=== PATIENT | female | born 1995 | race Caucasian/White ===

== ENCOUNTER → 2019-07-08 | Outpatient (CLI) | payer BC ==
--- NOTE | 2019-07-08 14:01 | Diagnostic Imaging Report ---
INDICATION: Measurements of cervical length and placenta. TECHNIQUE: Multiple real-time grayscale images were obtained over the gravid uterus. COMPARISON: None. FINDINGS: There are no prior studies available for comparison. This exam is less than optimal due to the patient's body habitus. There is a single fetus in transverse presentation. heart motion is noted and a rate of 135 bpm is recorded. There are no abnormalities identified; however, the intracranial anatomy and the four-chamber heart view are not well visualized. A short-term (4-6 weeks) follow-up exam would be recommended for further study. The growth parameters are fairly uniform. The placenta is anterior and there is no previa. The amniotic fluid volume is within normal limits. The cervix is identified and measures 4.9 cm in length. The ovaries are not well visualized. Biometrical measurements are as follows: Biparietal 4.77 cm, age 20 weeks 3 days. Head circumference 18.15 cm, age 20 weeks 4 days. Abdominal circumference 15.21 cm, age 20 weeks 3 days. Femur length 3.69 cm, age 21 weeks 6 days. Sonographic estimate age: 20 weeks 6 days. Sonographic estimated date of delivery: 11/19/2019. Estimated Weight: 389 gm (+/- 57 gm). LMP percentile: 42%. heart rate: 135 beats per minute. number: 1 of 1. IMPRESSION: 1. There is a single live fetus of approximately 20 weeks 6 days gestation +/- 1.5 weeks. The EDC is November 19, 2019. 2. There are no abnormalities identified; however, the intracranial anatomy and the four-chamber heart view are not well visualized. Recommendations as above. 3. The growth parameters are fairly uniform. Dictated by: Dictated on workstation # [id number]
== END ==
LOC: RAD 09:59
PROVIDERS: ATTEND Nurse Practitioner Women's Health
DX: Z34.92 Encounter for supervision of normal pregnancy, unspecified, second trimester (principal); Z3A.20 20 weeks gestation of pregnancy
CPT/HCPCS: 76805

== ENCOUNTER → 2019-08-12 | Outpatient (CLI) | payer BC ==
--- NOTE | 2019-08-12 15:48 | Diagnostic Imaging Report ---
INDICATION: Follow-up head anatomy and four-chamber heart views. TECHNIQUE: Multiple real-time grayscale images were obtained over the gravid uterus. COMPARISON: 07/08/2019. FINDINGS: There is a single live fetus in a breech presentation. heart rate was recorded at 132 bpm. Placenta is anterior. Amniotic fluid index is 15.8 cm. Maternal body habitus does compromise the exam. There continues to be suboptimal visualization of the posterior fossa including the cerebellum and cisterna magna. Four-chamber heart views remain limited. IMPRESSION: Limited obstetrical ultrasound, as described. Continued follow-up could be performed. Dictated by: Dictated on workstation # [id number]
== END ==
LOC: RAD 14:03
PROVIDERS: ATTEND Obstetrics & Gynecology
DX: Z34.90 Encounter for supervision of normal pregnancy, unspecified, unspecified trimester (principal); Z3A.00 Weeks of gestation of pregnancy not specified
CPT/HCPCS: 76816

== ENCOUNTER 2019-10-08 13:17 | Outpatient (CLI) | payer BC ==
[~2019-10-08] VITALS: Ht 167.7 cm; Wt 152.9 kg
--- NOTE | 2019-10-08 13:06 | NUR ---
SERAFIN PIZANO presented to unit from home, accompanied by significant other, with c/o C/O DECREASED MOVEMENTS. SERAFIN PIZANO weighed, gowned, voided, and to bed. EFHM and TOCO applied, VS taken. SERAFIN PIZANO oriented to bed controls, call light, TV, heat, and A/C controls.
--- NOTE | 2019-10-08 13:10 | NUR ---
Dr. Harris notified of patient's arrival and current complaints. New orders received.
[2019-10-08 13:16] VITALS: BP 134/74
[2019-10-08] MEDS ORDERED: PREN1TAB79 PO (13:29)
--- NOTE | 2019-10-08 13:45 | NUR ---
Reactive FHR tracing with moderate variability. FHR baseline 130 bpm with accels noted up to 150's. No decels noted. 1 UC noted lasting 70 seconds.
--- NOTE | 2019-10-08 13:46 | NUR ---
Discharge instructions and medications reviewed with patient and her spouse both written and verbally. Patient verbalizes understanding and questions answered.
--- NOTE | 2019-10-08 13:53 | NUR ---
Patient discharged at this time and ambulated from the unit accompanied by her . No signs or symptoms of distress noted.
--- NOTE | 2019-10-09 08:14 | Physician Query-Final Dx ---
BROOKS ROBLES 10/09/19 0814: Clinic Account Progress/Dx Physician Query: Please give diagnosis Please include # weeks gestation Date of Service Oct 08, 2019 at 13:17 CLEMENTINA PATRICIA DO 10/09/19 1141: Clinic Account Progress/Dx DIAGNOSIS: Diagnosis 33 week IUP Decreased movement BROOKS ROBLES Oct 09, 2019 08:14 CLEMENTINA PATRICIA DO Oct 09, 2019 11:41
== END 2019-10-08 13:53 | disposition home or self-care (01) ==
LOC: WSo 13:17 → LDRP 13:18 → WSo 13:53
PROVIDERS: ATTEND Obstetrics & Gynecology
DX: O36.8130 Decreased fetal movements, third trimester, not applicable or unspecified (principal); Z3A.33 33 weeks gestation of pregnancy
CPT/HCPCS: 99212

== ENCOUNTER → 2019-10-24 | Outpatient (CLI) | payer BC ==
[~2019-10-24] MED LIST: PREN1TAB79 PO
== END ==
LOC: LABNPT 16:40
PROVIDERS: ATTEND Obstetrics & Gynecology
DX: O16.9 Unspecified maternal hypertension, unspecified trimester (principal); Z3A.00 Weeks of gestation of pregnancy not specified
CPT/HCPCS: 82570; 84156

== ENCOUNTER 2019-11-17 18:53 | Inpatient (IN) | payer BC ==
[~2019-11-17] VITALS: Ht 167.5 cm; Wt 158.0 kg
[2019-11-17] MEDS ORDERED: D5 LR IV SOLUTION 1,000 ML IV ONE (18:58)
--- NOTE | 2019-11-17 19:00 | NUR ---
SERAFIN PIZANO presented to unit via ambulation from ED, accompanied by , with c/o INDUCTION. SERAFIN PIZANO weighed, gowned, voided, and to bed. EFHM and TOCO applied, VS taken. SERAFIN PIZANO oriented to bed controls, call light, TV, heat, and A/C controls.
[2019-11-17] MEDS ORDERED: TERBUTALINE INJ 1 MG/ML (BRETHINE) AMP SC PRN (19:15)
[2019-11-17 19:20] VITALS: BP 136/64
[2019-11-17 19:45] VITALS: BP 136/64
[2019-11-17] MEDS ORDERED: MISOPROSTOL 100 MCG (CYTOTEC) TAB PO ONE (20:00)
--- NOTE | 2019-11-17 20:00 | NUR ---
Report called to Dr Harris. Orders obtained and POC discussed with patient.
[2019-11-17] MEDS ORDERED: MISOPROSTOL 100 MCG (CYTOTEC) TAB ONE (20:04)
[2019-11-17 20:08] LABS: BASOPHILS % (AUTO) 0 % (0-10); EOSINOPHILS # (AUTO) 0.1 10^3/uL (0.0-0.3); EOSINOPHILS % (AUTO) 1 % (0-10); HEMATOCRIT 41 % (35-52); HEMOGLOBIN 12.4 g/dL (11.5-16.0); LYMPHOCYTES # (AUTO) 2.3 10^3/uL (1.0-4.0); LYMPHOCYTES % (AUTO) 22 % (12-44); MEAN CORPUSCULAR HEMOGLOBIN 29 pg (25-34); MEAN CORPUSCULAR HGB CONC 30 g/dL (32-36); MEAN CORPUSCULAR VOLUME 96 fL (80-99); MEAN PLATELET VOLUME 11.6 fL (9.0-12.2); MONOCYTES # (AUTO) 0.7 10^3/uL (0.0-1.0); MONOCYTES % (AUTO) 7 % (0-12); NEUTROPHILS # (AUTO) 6.9 10^3/uL (1.8-7.8); NEUTROPHILS % (AUTO) 69 % (42-75); PLATELET COUNT 190 10^3/uL (130-400); WHITE BLOOD COUNT 10.1 10^3/uL (4.3-11.0)
[2019-11-17 20:20] VITALS: BP 127/69
[2019-11-17] MEDS: D5 LR IV SOLUTION 1,000 ML IV SCH (20:26)
[2019-11-17 21:25] VITALS: BP 117/58
[2019-11-17] MEDS ORDERED: CATHETER FLUSH 10 ML SYR IV SCH (22:00)
[2019-11-17 22:43] VITALS: BP 130/73
[2019-11-18] VITALS (57 sets, daily range): BP systolic 92–151; BP diastolic 44–84
[2019-11-18] MEDS: MISOPROSTOL 100 MCG (CYTOTEC) TAB PO SCH ×2 (00:13→04:12)
[2019-11-18] MEDS: D5 LR IV SOLUTION 1,000 ML IV SCH ×2 (04:12→12:17)
--- NOTE | 2019-11-18 07:05 | NUR ---
Report to [place]. SUNNY
--- NOTE | 2019-11-18 07:16 | History & Physical-OB ---
OB - Chief Complaint & HPI Date/Time Date of Admission: Date of Admission: Nov 17, 2019 at 18:53 Date seen by a Provider: Nov 18, 2019 Time Seen by a Provider: 07:15 Chief Complaint/History OB-Reason for Admission/Chief: Induction of Labor Hx : 1 Hx Para: 0 Expected Date of Delivery: Nov 18, 2019 Gestational Age in Weeks: 40 Indication for induction: post dates Admission Nurse Assessment Rev: Yes Allergies and Home Medications Allergies Coded Allergies: No Known Drug Allergies (Unverified , 09/26/15) Home Medications Vit W-Ca,Fe,FA(<1 mg) 1 Each Tablet, 1 EACH PO DAILY, (Reported) Patient Home Medication List Home Medication List Reviewed: Yes OB - History Hx of Present Care: Yes Ultrasounds: Normal mid trimester US Obstetrical Complications: None Medical Complications: Other (BMI > 50) Delivery History Hx Blood Disorders: No Patient Past Medical History n/a Social History/Family History Recent Infectious Disease Expo: No Sexually Transmitted Disease: No Alcohol Use: Denies Use Recreational Drug Use: No 2nd Hand Smoke Exposure: No OB - Admission Exam Physical Exam Vitals: Vital Signs 11/17/19 11/18/19 11/18/19 19:45 04:19 06:30 Temp 35.9 Pulse 99 Resp 20 B/P (MAP) 130/70 (90) Pulse Ox 98 O2 Delivery Room Air HEENT: NCAT Heart: Rhythm Normal Lungs: Clear Abdomen: Gravid Extremities: Normal Reflexes: Normal Cervical Dilatation: 2cm Effacement: 75% Station: -3 Membranes: Intact Heart Rate: 130's Accelerations: Accelerations Present Decelerations: No Decelerations Short Term Variability: Present Medical Educator Variability: Average (6-25) Contractions on Admission: >10 Minutes Apart Intensity: Mild Aviles Scoring Tool (Modified) Dilation (cm): 1-2cm (1) Effacement (%): 51-79% (2) Descent/Station: -2 (1) Cervix Consistency: Soft (2) Cervix Position: Anterior (2) Subtract 1 point for: Postdate (-1), Nulliparity (-1) Aviles Score: 6 Labs Laboratory Tests Test 11/17/19 19:50 Range/Units White Blood Count 10.1 4.3-11.0 10^3/uL Red Blood Count 4.28 3.80-5.11 10^6/uL Hemoglobin 12.4 11.5-16.0 g/dL Hematocrit 41 35-52 % Mean Corpuscular Volume 96 80-99 fL Mean Corpuscular Hemoglobin 29 25-34 pg Mean Corpuscular Hemoglobin Concent 30 L 32-36 g/dL Red Cell Distribution Width 14.2 10.0-14.5 % Platelet Count 190 130-400 10^3/uL Mean Platelet Volume 11.6 9.0-12.2 fL Immature Granulocyte % (Auto) 0 % Neutrophils (%) (Auto) 69 42-75 % Lymphocytes (%) (Auto) 22 12-44 % Monocytes (%) (Auto) 7 0-12 % Eosinophils (%) (Auto) 1 0-10 % Basophils (%) (Auto) 0 0-10 % Neutrophils # (Auto) 6.9 1.8-7.8 10^3/uL Lymphocytes # (Auto) 2.3 1.0-4.0 10^3/uL Monocytes # (Auto) 0.7 0.0-1.0 10^3/uL Eosinophils # (Auto) 0.1 0.0-0.3 10^3/uL Basophils # (Auto) 0.0 0.0-0.1 10^3/uL Immature Granulocyte # (Auto) 0.0 0.0-0.1 10^3/uL OB - Assessment/Plan/Diagnosis Assessment Assessment: induction of labor Admission Dx 23 yo @ 40 weeks Post dates BMI 56 GBS neg Admission Status: Inpatient Order (span 2 midnights) Reason for Inpatient Admission: Induction of labor at 40 weeks Plan Plan: Induction CLEMENTNIA PATRICIA DO Nov 18, 2019 07:16
[2019-11-18] MEDS ORDERED: OXYTOCIN PRE-MIX DRIP 500 ML IV SCH ×2 (07:36→18:13)
[2019-11-18] MEDS ORDERED: fentaNYL 2 mcg/ml BUPIVA 0.125 100 ML ONE (10:16)
[2019-11-18] MEDS ORDERED: LACTATED RINGERS 1,000 ML IV ONE ×2 (10:47)
[2019-11-18] MEDS ORDERED: LIDOCAINE PF 2% 5 ML (XYLOCAINE) VIAL ONE (10:53)
[2019-11-18] MEDS ORDERED: fentaNYL INJECTION 100 MCG/2 ML AMP ONE (10:53)
[2019-11-18] MEDS ORDERED: BUPIVACAINE 0.25% 30 ML (SENSORCAINE) VIAL ONE (10:53)
[2019-11-18] MEDS ORDERED: EPIDURAL (fentaNYL 2 MCG/ML BUPIVA 0.125%)100 ML BAG EPI PRN (11:00)
[2019-11-18] MEDS ORDERED: NALOXONE 0.4 MG/ML 1 ML (NARCAN) VIAL IV PRN (11:00)
[2019-11-18] MEDS ORDERED: ONDANSETRON 4 MG/2 ML (SDV) Z0FRAN IV PRN (11:00)
[2019-11-18] MEDS ORDERED: fentaNYL INJECTION 100 MCG/2 ML AMP INJ ONE (11:00)
--- NOTE | 2019-11-18 11:03 | NUR ---
dr lopez update on pt status. pt getting epidural now. dr on his way to unit to see pt and SVE and place FSE.
--- NOTE | 2019-11-18 14:24 | NUR ---
dr lopez updated on pt report at this time. have not rechecked cervix per dr brown. pt comfortable wiht epidural, not feeling pressure yet. have been turning pt side to side with peanut/stirrup. uc pattern slowed and variables while on sides. sitting straight up in bed again now.
--- NOTE | 2019-11-18 16:05 | NUR ---
Dr lopez on unit to see pt , sve. dr leaving and will be back. wants rn to recheck in approx 45min.
--- NOTE | 2019-11-18 16:45 | NUR ---
this rn rechecks cervix and updates dr at this time. +1 station, rn practice pushing with pt, not a lot of movement. infant presentation feels OP. dr wants RN to begin pushing with pt at this time.
[2019-11-18] MEDS ORDERED: LIDOCAINE/EPI 2% 1:200,00 (XYLOCAINE) 10 ML VIAL ONE (17:39)
[2019-11-18] MEDS ORDERED: LIDOCAINE/EPI 2% 1:200,00 (XYLOCAINE) 10 ML VIAL INJ ONE (17:45)
--- NOTE | 2019-11-18 18:11 | OB Labor & Delivery Record ---
L&D History Date of Service Date of Service: Nov 18, 2019 History Expected Date of Delivery: Nov 18, 2019 Gestational Age in Weeks: 40 Hx : 1 Hx Para: 0 Complications Events: Routine care Operative Indications (Cesarea: N/A-Vaginal Delivery Intrapartal Events: None L&D Stage1 Stage One Onset of Labor - Date: Nov 18, 2019 Monitors and Tracing Monitor Mode: Internal Heart Rate: 125 Monitor Accelerations: Uniform Monitor Decelerations: Variable Station: 0 Snf Variability: Average (6-10) Short Term Variability: Present Presentation: Vertex Vital Signs VS - Last 72 Hours, by Label 11/17/19 11/17/19 11/17/19 11/17/19 19:20 19:45 20:20 21:25 Temp 36.5 36.5 Pulse 101 101 88 81 Resp 20 20 20 20 B/P (MAP) 136/64 (88) 127/69 (88) 117/58 (77) Pulse Ox 98 98 O2 Delivery Room Air Room Air Room Air Room Air 11/17/19 11/18/19 11/18/19 11/18/19 22:43 00:03 01:10 02:10 Temp 35.9 36.0 Pulse 78 75 80 71 Resp 20 20 20 20 B/P (MAP) 130/73 (92) 122/59 (80) 109/55 (73) 117/59 (78) O2 Delivery Room Air Room Air Room Air Room Air 11/18/19 11/18/19 11/18/19 11/18/19 04:19 05:39 06:30 07:15 Temp 35.9 36.1 Pulse 83 82 99 81 Resp 20 20 20 18 B/P (MAP) 117/56 (76) 116/66 (83) 130/70 (90) 133/69 (90) Pulse Ox 100 O2 Delivery Room Air Room Air Room Air Room Air 11/18/19 11/18/19 11/18/19 11/18/19 08:15 08:30 08:45 09:00 Pulse 73 77 75 68 Resp 18 B/P (MAP) 130/71 (90) 126/58 (80) 141/69 (93) 134/64 (87) O2 Delivery Room Air Room Air Room Air Room Air 11/18/19 11/18/19 11/18/1912/20 09:15 09:30 09:45 10:00 Temp 36.1 Pulse 99 68 Resp 18 B/P (MAP) 151/84 (106) 140/65 (90) Pulse Ox 100 O2 Delivery Room Air Room Air Room Air Room Air 11/18/19 11/18/19 11/18/19 11/18/19 10:15 10:30 10:45 11:00 Pulse 89 65 86 92 B/P (MAP) 147/82 (103) 143/68 (93) 140/70 (93) Pulse Ox 100 O2 Delivery Room Air Room Air Room Air Room Air 11/18/19 11/18/19 11/18/19 11/18/19 11:15 11:26 11:30 11:32 Temp 36.0 Pulse 94 90 77 81 Resp 18 B/P (MAP) 134/75 (94) 140/63 (88) 125/60 (81) 119/57 (77) Pulse Ox 94 100 100 100 O2 Delivery Room Air Room Air Room Air Room Air 11/18/19 11/18/19 11/18/19 11/18/19 11:35 11:38 11:41 11:45 Pulse 86 90 78 78 B/P (MAP) 120/58 (78) 108/54 (72) 113/53 (73) 114/54 (74) Pulse Ox 100 100 100 100 O2 Delivery Room Air Room Air Room Air Room Air 11/18/19 11/18/19 11/18/19 11/18/19 11:49 11:55 12:00 12:05 Pulse 70 75 71 75 B/P (MAP) 108/54 (72) 107/55 (72) 92/44 (60) 124/78 (93) Pulse Ox 100 100 100 100 O2 Delivery Room Air Room Air Room Air Room Air 11/18/19 11/18/19 11/18/19 11/18/19 12:10 12:15 12:20 12:30 Pulse 67 80 80 85 B/P (MAP) 136/59 (84) 123/57 (79) 121/60 (80) 118/54 (75) Pulse Ox 99 99 100 100 O2 Delivery Room Air Room Air Room Air Room Air 11/18/19 11/18/19 11/18/19 11/18/19 12:45 13:00 13:15 13:30 Temp 36.0 Pulse 72 88 78 Resp 19 B/P (MAP) 116/55 (75) 117/56 (76) 118/66 (83) 121/62 (81) Pulse Ox 100 O2 Delivery Room Air Room Air Room Air Room Air 11/18/19 11/18/19 11/18/19 11/18/19 13:45 14:00 14:15 14:30 Temp 36.0 Pulse 84 75 78 92 Resp 18 B/P (MAP) 131/60 (83) 133/63 (86) 142/68 (92) 141/63 (89) O2 Delivery Room Air Room Air Room Air Room Air 11/18/19 11/18/19 11/18/19 11/18/19 14:45 15:00 15:15 15:30 Pulse 91 100 96 94 B/P (MAP) 141/74 (96) 148/81 (103) 135/75 (95) 148/68 (94) O2 Delivery Room Air Room Air Room Air Room Air 11/18/19 15:45 Pulse 95 B/P (MAP) 134/62 (86) O2 Delivery Room Air Rupture of Membranes Spontaneous Ruture of Membrane: No Amniotic Membrane Rupture Time: 0725 Amniotic Membrane Fluid Desc.: Clear Vaginal Bleeding Description: Normal Show Induction/Anesthesia Epidural Cath Placement - Time: 1113 Progress/Notes Patient admitted for cytotec overnight induction. 3 doses given throughout the night. AROM done this AM, Pitocin augmentation started, she progressed with an epidural to complete and + 2 station. L&D Stage2 Stage Two Stage II Date: Nov 18, 2019 Monitors and Tracing Monitor Mode: Internal Heart Rate: 125 Monitor Accelerations: Uniform Monitor Decelerations: Variable Dental Assistant Variability: Average (6-10) Short Term Variability: Present Position: Right Occiput Anterior Presentation: Vertex Cord Descript/Complications Cord Vessel Description: 3 Vessels Complications Patient pushing was ineffective to allow for delivery quickly enough with heart tracing showing repeititve variables into the 70s. TAMMY presentation confirmed, Kiwi vaccum placed on flexion point, and 50 mmHg applied with gentle extension head is delivered and vacuum released. Delivery Type Infant Delivery Method: Low Vacuum Extraction Anterior Shoulder: Right Episiotomy/Perineal Laceration Laceraction(s)/Extensions: Yes Episiotomy Description: Vaginal Extension/lac, 2nd degree Degree (describe repair) 2nd degree vaginal laceration repaired using 3-0 rapide in usual fashion Condition of Delivery 1 minute Comment: 8 5 minute Comment: 9 Notes Live female infant weight 6lbs 14 oz Condition of Infant Condition of : Living Exam: No Observed Abnormalities Resuscitation Resuscitation: N/A - Spontaneous Resp L&D Stage3 Stage Three Stage III Date: Nov 18, 2019 Pictocin Pitocin Administration mu/min: 8 Pitocin ml/hr: 8 Pitocin Administration Comment: 30 mu wide open at delivery of placenta Placenta Delivery Placenta Delivery: Spontaneous Delivery Summary Summary Estimated blood loss (mL): 350 Attending at delivery: Clementina Patricia DO Condition of Delivery Examined: Cervix Examined, Uterus Explored Post Hemorrhage: No Condition of Mother stable Condition of (s) stable CLEMENTINA PATRICIA DO Nov 18, 2019 18:11
[2019-11-18] MEDS ORDERED: TETANUS,DIPTH,PERTUSS P/F (BOOSTRIX) 0.5 ML VIAL IM ONE (18:15)
[2019-11-18] MEDS ORDERED: HYDROcodone/APAP 5 MG/325 MG (LORTAB) TAB PO PRN (18:15)
[2019-11-18] MEDS ORDERED: BENZOCAINE/MENTHOL (DERMOPLAST) 60 ML CAN TP PRN (18:15)
[2019-11-18] MEDS ORDERED: MEASLES,MUMPS,RUBELLA 1 EA INJ SQ ONE (18:15)
[2019-11-18] MEDS ORDERED: IBUPROFEN 600 MG (MOTRIN) TAB PO ONE (19:02)
[2019-11-18] MEDS: WITCH HAZEL(TUCKS) 40 EA JAR TOP PRN (19:08)
[2019-11-18] MEDS: IBUPROFEN 600 MG (MOTRIN) TAB PO SCH (19:08)
--- NOTE | 2019-11-18 19:10 | NUR ---
1705 pt starts pushing with rn at this time 1726 dr lopez at bedside, sve, pushing with pt 1731 room setup for delivery 1738 cord clamped and cut 1740 2nd degree laceration repaired by dr lopez at this time 1751 placenta delivered intact by dr lopez 1754 pericare by this rn 1800 recovery period begins at this time. fundus firm, midline, 2 below umbilicus, scant bleeding. vss. pt denies needs at this time. call light within reach. SO remains at bedside. 1815 fundus firm, midline, 2 below umbilicus, scant bleeding. vss. pt denies needs at this time. call light within reach. SO remains at bedside. 1830 fundus firm, midline, 2 below umbilicus, scant bleeding. vss. pt denies needs at this time. call light within reach. SO remains at bedside. 1845 fundus firm, midline, 2 below umbilicus, scant bleeding. vss. pt denies needs at this time. call light within reach. SO remains at bedside. epidural DCd. 1900 fundus firm, midline, 2 below umbilicus, scant bleeding. vss. pt denies needs at this time. call light within reach. SO remains at bedside. pericare by this rn. ibuprofen admin, see eMAR. 1905 pt report given to berry dorman at this time.
[2019-11-18] MEDS ORDERED: DOCUSATE SODIUM 100 MG (COLACE) CAP PO SCH (21:00)
[2019-11-18] MEDS ORDERED: CATHETER FLUSH 10 ML SYR IV SCH (22:00)
--- NOTE | 2019-11-18 22:00 | NUR ---
Pericare pads changed, pt voided by bedpan earlier after delivery, pt to wc and transferred to pp unit. oriented to call system and surroundings, understanding voiced, will cont to monitor.
[2019-11-19] MEDS: IBUPROFEN 600 MG (MOTRIN) TAB PO SCH ×4 (02:19→20:13)
[2019-11-19 02:22] VITALS: BP 132/76
[2019-11-19 06:15] VITALS: BP 131/74
[2019-11-19 06:35] LABS: BASOPHILS % (AUTO) 0 % (0-10); EOSINOPHILS # (AUTO) 0.1 10^3/uL (0.0-0.3); EOSINOPHILS % (AUTO) 1 % (0-10); HEMATOCRIT 34 % (35-52); HEMOGLOBIN 10.7 g/dL (11.5-16.0); LYMPHOCYTES # (AUTO) 2.3 10^3/uL (1.0-4.0); LYMPHOCYTES % (AUTO) 19 % (12-44); MEAN CORPUSCULAR HEMOGLOBIN 29 pg (25-34); MEAN CORPUSCULAR HGB CONC 32 g/dL (32-36); MEAN CORPUSCULAR VOLUME 91 fL (80-99); MEAN PLATELET VOLUME 12.3 fL (9.0-12.2); MONOCYTES # (AUTO) 1.1 10^3/uL (0.0-1.0); MONOCYTES % (AUTO) 9 % (0-12); NEUTROPHILS # (AUTO) 8.5 10^3/uL (1.8-7.8); NEUTROPHILS % (AUTO) 70 % (42-75); PLATELET COUNT 145 10^3/uL (130-400); WHITE BLOOD COUNT 12.1 10^3/uL (4.3-11.0)
[2019-11-19] MEDS ORDERED: PRENATAL VITAMIN 1 EA TAB PO SCH (07:00)
[2019-11-19 08:00] VITALS: BP 122/71
--- NOTE | 2019-11-19 08:27 | Postpartum Progress Note ---
Note Note Day # 1 Subjective: Patient is without complaints. Ambulating, voiding. Tolerating a regular diet without nausea or vomiting. Normal lochia. Pain is well controlled with oral pain medications. Objective: Physical Exam: General - Alert and oriented, no apparent distress Abdomen - Soft, appropriately tender to palpation, non-distended, fundus firm at umbilicus Extremities - no edema, negative Tootie's bilaterally Assessment: PPD 1 VAVD Acute blood loss anemia Plan: Routine care. Encourage breast feeding. Encourage ambulation. Ferrous sulfate supplementation. Plan for discharge today Vitals - Labs Vital Signs - I&O Vital Signs Date Time Temp Pulse Resp B/P (MAP) Pulse Ox O2 Delivery O2 Flow Rate FiO2 11/19/19 06:15 37.4 87 18 131/74 (93) 99 Room Air 11/19/19 02:22 36.8 78 18 132/76 (94) 99 Room Air 11/18/19 19:03 84 143/67 (92) Room Air 11/18/19 18:48 80 135/57 (83) Room Air 11/18/19 18:33 102 128/54 (78) Room Air 11/18/19 18:18 88 16 121/60 (80) Room Air 11/18/19 18:04 99 130/60 (83) Room Air 11/18/19 17:50 101 143/57 (85) Room Air 11/18/19 17:30 Room Air 11/18/19 17:15 89 147/80 (102) Room Air 11/18/19 17:00 90 139/71 (93) Room Air 11/18/19 16:45 94 20 136/72 (93) Room Air 11/18/19 16:30 108 142/65 (90) Room Air 11/18/19 16:15 Room Air 11/18/19 16:00 140/71 (94) Room Air 11/18/19 15:45 95 134/62 (86) Room Air 11/18/19 15:30 94 148/68 (94) Room Air 11/18/19 15:15 96 135/75 (95) Room Air 11/18/19 15:00 100 148/81 (103) Room Air 11/18/19 14:45 91 141/74 (96) Room Air 11/18/19 14:30 36.0 92 18 141/63 (89) Room Air 11/18/19 14:15 78 142/68 (92) Room Air 11/18/19 14:00 75 133/63 (86) Room Air 11/18/19 13:45 84 131/60 (83) Room Air 11/18/19 13:30 78 121/62 (81) Room Air 11/18/19 13:15 118/66 (83) Room Air 11/18/19 13:00 36.0 88 19 117/56 (76) Room Air 11/18/19 12:45 72 116/55 (75) 100 Room Air 11/18/19 12:30 85 118/54 (75) 100 Room Air 11/18/19 12:20 80 121/60 (80) 100 Room Air 11/18/19 12:15 80 123/57 (79) 99 Room Air 11/18/19 12:10 67 136/59 (84) 99 Room Air 11/18/19 12:05 75 124/78 (93) 100 Room Air 11/18/19 12:00 71 92/44 (60) 100 Room Air 11/18/19 11:55 75 107/55 (72) 100 Room Air 11/18/19 11:49 70 108/54 (72) 100 Room Air 11/18/19 11:45 78 114/54 (74) 100 Room Air 11/18/19 11:41 78 113/53 (73) 100 Room Air 11/18/19 11:38 90 108/54 (72) 100 Room Air 11/18/19 11:35 86 120/58 (78) 100 Room Air 11/18/19 11:32 81 119/57 (77) 100 Room Air 11/18/19 11:30 36.0 77 18 125/60 (81) 100 Room Air 11/18/19 11:26 90 140/63 (88) 100 Room Air 11/18/19 11:15 94 134/75 (94) 94 Room Air 11/18/19 11:00 92 100 Room Air 11/18/19 10:45 86 140/70 (93) Room Air 11/18/19 10:30 65 143/68 (93) Room Air 11/18/19 10:15 89 147/82 (103) Room Air 11/18/19 10:00 Room Air 11/18/19 09:45 36.1 68 18 140/65 (90) 100 Room Air 11/18/19 09:30 Room Air 11/18/19 09:15 99 151/84 (106) Room Air 11/18/19 09:00 68 134/64 (87) Room Air 11/18/19 08:45 75 141/69 (93) Room Air 11/18/19 08:30 77 126/58 (80) Room Air I & O0 11/19/19 07:00 Intake Total 3800 ml Balance 3800 ml Labs Laboratory Tests 11/19/19 05:42: White Blood Count 12.1H, Red Blood Count 3.74L, Hemoglobin 10.7L, Hematocrit 34L , Mean Corpuscular Volume 91, Mean Corpuscular Hemoglobin 29, Mean Corpuscular Hemoglobin Concent 32, Red Cell Distribution Width 14.2, Platelet Count 145, Mean Platelet Volume 12.3H, Immature Granulocyte % (Auto) 0, Neutrophils (%) (Auto) 70, Lymphocytes (%) (Auto) 19, Monocytes (%) (Auto) 9, Eosinophils (%) (Auto) 1, Basophils (%) (Auto) 0, Neutrophils # (Auto) 8.5H, Lymphocytes # (Auto) 2.3, Monocytes # (Auto) 1.1H, Eosinophils # (Auto) 0.1, Basophils # (Auto) 0.0, Immature Granulocyte # (Auto) 0.0 CLEMENTINA PATRICIA DO Nov 19, 2019 08:27
[2019-11-19] MEDS ORDERED: ACHD5005 PO (08:30)
[2019-11-19] MEDS ORDERED: FERR325T18 PO (08:30)
[2019-11-19] MEDS ORDERED: DCS100C PO (08:30)
[2019-11-19] MEDS ORDERED: IBUP-844 PO (08:30)
--- NOTE | 2019-11-19 08:32 | Discharge Inst-Women's Service ---
Discharge Inst-Women's Serv Depart Medication/Instructions New, Converted or Re-Newed RX: RX on Chart Final Diagnosis PPD 1 VAVD Problems Reviewed?: Yes Consults/Follow Up Additional Follow Up: Yes Orders/Referrals Dr. Patricia in 6 weeks Activity Activity: Activity as Tolerated Driving Instructions: No Driving for 1 Week NO SMOKING: NO SMOKING Nothing Inside Vagina: No Douching, No [place], No Tampons Diet Discharge Diet: No Restrictions Symptoms to Report to : Bleeding Excessive, Pain Increased, Fever Over 101 Degrees F, Vaginal Bleeding Increase, Questions/Concerns For Any Problems or Questions: Contact Your Physician CLEMENTINA PATRICIA DO Nov 19, 2019 08:32
[2019-11-19] MEDS ORDERED: FERROUS SULF 325 MG (IRON) TAB PO SCH (09:00)
--- NOTE | 2019-11-19 10:01 | Anesthesia-Regional Post-Op ---
Regional Patient Condition Mental Status: Alert, Oriented x3 Circulation: Same as Pre-Op Headache: Absent Sensation: Full Recovery Motor Block: Absent Post Op Complications Complications None Follow Up Care/Instructions Patient Instructions None needed. Anesthesia/Patient Condition Patient is doing well, no complaints, stable vital signs, no apparent adverse anesthesia problems. No complications reported per nursing. D/C home per [facility] Criteria: ANDRE Diego CRNA Nov 19, 2019 10:01
[2019-11-19 13:30] VITALS: BP 121/69
[2019-11-19 16:15] VITALS: BP 146/86
--- NOTE | 2019-11-19 17:05 | NUR ---
Hoping for discharge later - depending on infant's labs. Refused flu vaccine.
[2019-11-19] MEDS: WITCH HAZEL(TUCKS) 40 EA JAR TOP PRN (20:16)
--- NOTE | 2019-11-19 20:30 | NUR ---
Discharge orders received for pt. Assessments and VS done. No needs at this time.
--- NOTE | 2019-11-19 21:00 | NUR ---
Discharge instructions reviewed with pt and SO. Questions answered. Prescriptions given. Pt discharged in stable condition via WC to private vehicle with SO and baby.
== END 2019-11-19 21:00 | disposition home or self-care (01) | DRG 806 ==
LOC: LDRP 18:53
PROVIDERS: ADMIT Obstetrics & Gynecology; ATTEND Obstetrics & Gynecology
PROC: 10D07Z6 Extraction of Products of Conception, Vacuum, Via Natural or Artificial Opening (ICD-10-PCS; principal; 2019-11-18)
PROC: 0KQM0ZZ Repair Perineum Muscle, Open Approach (ICD-10-PCS; 2019-11-18)
DX: O48.0 Post-term pregnancy (principal); D62 Acute posthemorrhagic anemia; Z37.0 Single live birth; O90.81 Anemia of the puerperium; O70.1 Second degree perineal laceration during delivery; Z3A.40 40 weeks gestation of pregnancy
CPT/HCPCS: 36415; 85025; 86850; 86900; 86901